=== PATIENT | female | born 1995 | race Caucasian/White ===

== ENCOUNTER 2023-07-05 08:22 | Outpatient (CLI) | payer OTHER, SELFPAY ==
--- NOTE | 2023-07-05 08:15 | CRLHL7_ITS ---
For Patients: As a result of the Century Cures Act, medical imaging exams and procedure reports are released immediately into your electronic medical record. You may view this report before your referring provider. If you have questions, please contact your health care provider. INDICATION: First trimester scan, establish dates. COMPARISON: None. TECHNIQUE: Real-time pascual-scale imaging of the pelvis was performed. FINDINGS: Sonographic imaging demonstrates a single living intrauterine gestation. The embryo demonstrates a regular cardiac rate measuring 165 beats per minute. The embryo`s crown-rump length measurement of 1.5 cm corresponds to a gestational age of 7 weeks 6 days with a sonographic due date of 02/15/2024. There is a normal-appearing yolk sac. There are no gross abnormalities noted within the embryo at this early state of development. The gestational sac has a normal appearance. There is no evidence of a perigestational hemorrhage. The amount of fluid within the sac appears appropriate for gestational age. The cervix is closed. The myometrium appears normal. The ovaries are of normal size. Corpus luteal cyst left ovary. There are no suspicious fluid collections noted in the cul-de-sac. IMPRESSION: Normal first trimester OB ultrasound exam. Gestational age calculated at 7 weeks 6 days with a sonographic due date of 02/15/2024. Dictated by Van Clark MD @ 07/10/2023 5:10:11 PM (Electronically Signed)
== END 2023-07-05 08:23 | disposition home or self-care (01) ==
PROVIDERS: Visit Provider Physician Assistant
DX: Z34.91 Encounter for supervision of normal pregnancy, unspecified, first trimester (principal); Z3A.01 Less than 8 weeks gestation of pregnancy
CPT/HCPCS: 76817

== ENCOUNTER 2023-07-05 09:38 | Outpatient (CLI) | payer OTHER, SELFPAY ==
[2023-07-05 12:47] LABS: Chlamydia DNA Amplified* NOT DETECTED (No Detected); GC DNA Amplified* NOT DETECTED (No Detected)
== END 2023-07-05 09:39 | disposition home or self-care (01) ==
PROVIDERS: Visit Provider Physician Assistant
DX: Z34.91 Encounter for supervision of normal pregnancy, unspecified, first trimester (principal)
CPT/HCPCS: 86592; 86703; 86704; 86706; 86762; 86787; 86803; 86850; 86900; 86901; 87086; 87340; 87491; 87591

== ENCOUNTER 2023-10-02 15:01 | Outpatient (CLI) | payer OTHER, SELFPAY ==
--- NOTE | 2023-10-02 15:00 | US_ITS ---
Patient: HENRI BALBUENA Facility:?[facility] Patient ID:?[id number] Site Patient ID:?[id number]. Site :?[id number] Study:?US-OB Pelvis OB > 14wks-10/02/2023 4:30:12 PM Ordering Physician:Ofe Murcia Final Report: INDICATION: Evaluate anatomy. COMPARISON: 07/05/2023 TECHNIQUE: Real time pascual scale imaging of the fetus was performed as well as color Doppler analysis of the umbilical vessels. FINDINGS: Sonographic imaging demonstrates a single living intrauterine gestation. Fetus demonstrates a regular cardiac rate of 150 beats per minute. Fetus has a vertex position. The placenta lies anteriorly without evidence of placenta previa. Edge of the placenta located 4.1 cm from the internal cervical os. Amniotic fluid volume appears normal. Single deepest vertical pocket: 3.7 cm. The cervix is closed and measures 4.3 cm in length. The composite ultrasound gestational age is calculated at 20 weeks 6 days with an estimated sonographic due date of 02/13/2024. The estimated weight is 386 grams which lies at the 65th %. The following biometric measurements were obtained: Biparietal diameter: 4.8 cm/20 weeks 4 days 52nd% Head circumference: 18.0 cm/20 weeks 3 days 34th% Abdominal circumference: 15.8 cm/21 weeks 0 days 57th% Femur length: 3.5 cm/21 weeks 0 days 57th% The HC/AC ratio measures: 1.14 range (1.06-1.25) On anatomic survey, there is a normal appearance of the cerebral ventricles, cavum septi pellucidi, cisterna magna and cerebellum. The nose, lips, and facial profile appear normal. The cervical, thoracic and lumbar spine are well visualized and appear normal. There is a normal four-chamber heart view and the left and right ventricular outflow tracts appear normal. The diaphragm and stomach appear normal. The kidneys and bladder also appear normal. Mild bilateral pelviectasis measuring 2.4 millimeters and 1.7 millimeters, considered normal. There is a normal three-vessel cord and cord insertion site. The four extremities appear normal. IMPRESSION: Normal OB ultrasound exam with concordance of clinical and sonographic dating. No intrinsic abnormalities noted on anatomic survey. Dictated by Van Clark MD @ 10/03/2023 9:14:49 AM Signed by:?Van Clark MD @10/03/2023 9:14:49 AM (Electronic Signature)
== END 2023-10-02 15:02 | disposition home or self-care (01) ==
LOC: US 15:01
PROVIDERS: Visit Provider Advanced Practice Midwife
DX: Z34.92 Encounter for supervision of normal pregnancy, unspecified, second trimester (principal); Z3A.20 20 weeks gestation of pregnancy
CPT/HCPCS: 76805

== ENCOUNTER 2023-11-01 15:42 | Outpatient (CLI) | payer OTHER, SELFPAY | END 2023-11-01 15:43 | disposition home or self-care (01) | LOC: NFLDREF 11-02 10:04 | PROVIDERS: Visit Provider Registered Nurse | DX: R32 Unspecified urinary incontinence (principal); N89.8 Other specified noninflammatory disorders of vagina | CPT/HCPCS: 87086 ==

== ENCOUNTER 2023-11-28 12:15 | Outpatient (CLI) | payer OTHER, SELFPAY | END 2023-11-28 12:16 | disposition home or self-care (01) | PROVIDERS: Visit Provider Advanced Practice Midwife | DX: Z34.03 Encounter for supervision of normal first pregnancy, third trimester (principal) | CPT/HCPCS: 86592; 86850; J2791 ==

== ENCOUNTER 2023-11-28 15:52 | Outpatient (CLI) | payer OTHER, SELFPAY ==
[2023-11-28 16:03] VITALS: BP 116/77; PULSE 87; RESP 16; TEMP 36.6
--- NOTE | 2023-11-28 19:35 | PC.OBNST ---
NST Note NST Note Start: 11/28/23 15:57 Freq: ONCE Status: Active Protocol: Document 11/28/23 16:48 JRNoelle (Rec: 11/28/23 16:49 JRNoelle [id number]) NST Note 1 Para (# of births) 0 EDC 02/15/24 Gestational Age In Weeks & Days 28 Weeks & 5 Days Patient Presented with Complaint(s) of Decreased movement Reactive Yes Appropriate for Gestational Age Yes RN Brittany Chanel RN Date 11/28/23 Reactive Yes Appropriate for Gestational Age Yes MALIKA Hfofman RN Date 11/28/23 OB NST charge Yes Complete NST Note via Write Note Yes The provider's electronic signature indicates the NST is reactive/appropriate for gestational age. *Note to provider: If an addendum is required, open the patient's chart and click on the note under the Nurse/Allied Health tab.
--- NOTE | 2024-01-03 12:44 | PC.OBNST ---
NST Note NST Note Start: 11/28/23 15:57 Freq: ONCE Status: Discharge Protocol: Document 11/28/23 16:48 FARZANA (Rec: 11/28/23 16:49 FARZANA [id number]) NST Note 1 Para (# of births) 0 EDC 02/15/24 Gestational Age In Weeks & Days 28 Weeks & 5 Days Patient Presented with Complaint(s) of Decreased movement Reactive Yes Appropriate for Gestational Age Yes RN Brittany Chanel RN Date 11/28/23 Reactive Yes Appropriate for Gestational Age Yes MALIKA Hoffman RN Date 11/28/23 OB NST charge Yes Complete NST Note via Write Note Yes The provider's electronic signature indicates the NST is reactive/appropriate for gestational age. *Note to provider: If an addendum is required, open the patient's chart and click on the note under the Nurse/Allied Health tab.
--- NOTE | 2024-01-03 13:26 | PC.OBNST ---
NST Note NST Note Start: 11/28/23 15:57 Freq: ONCE Status: Discharge Protocol: Document 11/28/23 16:48 FARZANA (Rec: 11/28/23 16:49 FARZANA [id number]) NST Note 1 Para (# of births) 0 EDC 02/15/24 Gestational Age In Weeks & Days 28 Weeks & 5 Days Patient Presented with Complaint(s) of Decreased movement Reactive Yes Appropriate for Gestational Age Yes RN Brittany Chanel RN Date 11/28/23 Reactive Yes Appropriate for Gestational Age Yes MALIKA Hoffman RN Date 11/28/23 OB NST charge Yes Complete NST Note via Write Note Yes The provider's electronic signature indicates the NST is reactive/appropriate for gestational age. *Note to provider: If an addendum is required, open the patient's chart and click on the note under the Nurse/Allied Health tab.
== END 2023-11-28 17:15 | disposition home or self-care (01) ==
LOC: OB OUT 15:53 → OB 15:54
PROVIDERS: Visit Provider Advanced Practice Midwife
DX: O36.8130 Decreased fetal movements, third trimester, not applicable or unspecified (principal); Z3A.28 28 weeks gestation of pregnancy
CPT/HCPCS: 59025; 86850; G0463; J2791

== ENCOUNTER 2023-12-12 08:25 | Outpatient (CLI) | payer OTHER, SELFPAY | END 2023-12-12 08:26 | disposition home or self-care (01) | LOC: NFLDREF 12-13 10:40 | PROVIDERS: Visit Provider Advanced Practice Midwife | DX: O99.810 Abnormal glucose complicating pregnancy (principal) | CPT/HCPCS: 82951; 82952 ==

== ENCOUNTER 2024-01-09 10:13 | Outpatient (CLI) | payer OTHER, SELFPAY | END 2024-01-09 10:14 | disposition home or self-care (01) | LOC: LKVREF 10:13 | PROVIDERS: Visit Provider Advanced Practice Midwife | DX: Z34.93 Encounter for supervision of normal pregnancy, unspecified, third trimester (principal); Z3A.34 34 weeks gestation of pregnancy | CPT/HCPCS: 82728 ==

== ENCOUNTER 2024-01-24 10:08 | Outpatient (RCR) | payer OTHER, SELFPAY ==
--- NOTE | 2024-01-10 11:49 | PC.NURSE ---
Diagnosis: SUZIE in
--- NOTE | 2024-01-11 12:35 | URNOTE ---
Request received for authorization for Infed ([id number]). Prior authorization is not required per Joy on behalf of [employer].
[2024-01-24 10:24] VITALS: BP 113/71; PULSE 87; RESP 16; TEMP 36.6; O2SAT 98
[2024-01-24] MEDS: IRON DEXTRAN COMPLEX 25 MG in 0.9 % SODIUM CHLORIDE 100 ml 100 ML 402 MG IVPB (10:50)
[2024-01-24 11:16] VITALS: BP 102/64; PULSE 85; RESP 14; TEMP 36.4; O2SAT 98
[2024-01-24] MEDS: IRON DEXTRAN COMPLEX 975 MG in 0.9 % SODIUM CHLORIDE 250 ml 250 ML 270 MG IVPB (12:25)
[2024-01-24 13:35] VITALS: BP 106/67; PULSE 82; RESP 16; TEMP 36.3; O2SAT 97
[2024-01-24 14:05] VITALS: BP 112/69; PULSE 79; RESP 14; TEMP 36.4; O2SAT 97
== END 2024-07-22 23:59 | disposition home or self-care (01) ==
LOC: CCIC 10:08
PROVIDERS: Visit Provider Advanced Practice Midwife
DX: O99.019 Anemia complicating pregnancy, unspecified trimester (principal); D50.9 Iron deficiency anemia, unspecified
CPT/HCPCS: 87081; 87653; 96365; 96376; J1750; J7050

== ENCOUNTER 2024-01-30 16:36 | Outpatient (CLI) | payer OTHER, SELFPAY ==
[2024-01-30] VITALS (19 sets, daily range): BP systolic 115; BP diastolic 74; PULSE 76–97; TEMP 36.6; O2SAT 97–98
[2024-01-30 18:32] LABS: Amnisure Rom* Negative
[2024-01-30] MEDS: metroNIDAZOLE 500 MG TABLET PO (19:03)
--- NOTE | 2024-01-30 20:31 | PC.OBNST ---
NST Note NST Note Start: 01/30/24 16:49 Freq: ONCE Status: Active Protocol: Document 01/30/24 20:30 ABP (Rec: 01/30/24 20:31 ABP [id number]) NST Note 1 Para (# of births) 0 EDC 02/15/24 Gestational Age In Weeks & Days 37 Weeks & 5 Days Patient Presented with Complaint(s) of Leaking fluid Reactive Yes MALIKA Hoffman RN Date 01/30/24 Reactive Yes MALIKA Negro Date 01/30/24 OB NST charge Yes Complete NST Note via Write Note Yes The provider's electronic signature indicates the NST is reactive/appropriate for gestational age. *Note to provider: If an addendum is required, open the patient's chart and click on the note under the Nurse/Allied Health tab.
== END 2024-01-30 19:05 | disposition home or self-care (01) ==
LOC: OB OUT 16:37 → OB 16:37
PROVIDERS: Advanced Practice Midwife; Visit Provider Midwife
DX: O47.1 False labor at or after 37 completed weeks of gestation (principal); Z3A.37 37 weeks gestation of pregnancy
CPT/HCPCS: 59025; 84112; G0463; A9270

== ENCOUNTER 2024-02-04 10:11 | Outpatient (CLI) | payer OTHER, SELFPAY ==
[2024-02-04 10:22] VITALS: PULSE 98; O2SAT 99
[2024-02-04 10:27] VITALS: BP 108/70; PULSE 97
[2024-02-04 10:44] VITALS: TEMP 36.6
--- NOTE | 2024-02-04 11:42 | PC.OBNST ---
NST Note NST Note Start: 02/04/24 10:18 Freq: ONCE Status: Active Protocol: Document 02/04/24 11:27 FJZ (Rec: 02/04/24 11:41 FJZ [id number]) NST Note 1 Para (# of births) 0 EDC 02/15/24 Gestational Age In Weeks & Days 38 Weeks & 3 Days Patient Presented with Complaint(s) of Decreased movement Reactive Yes Appropriate for Gestational Age Yes RN Anton Hollis RN Date 02/04/24 Reactive Yes Appropriate for Gestational Age Yes MALIKA Miller RNC Date 02/04/24 OB NST charge Yes Complete NST Note via Write Note Yes The provider's electronic signature indicates the NST is reactive/appropriate for gestational age. *Note to provider: If an addendum is required, open the patient's chart and click on the note under the Nurse/Allied Health tab.
== END 2024-02-04 11:27 | disposition home or self-care (01) ==
LOC: OB OUT 10:11 → OB 10:18
PROVIDERS: Visit Provider Advanced Practice Midwife
DX: O36.8130 Decreased fetal movements, third trimester, not applicable or unspecified (principal); Z3A.38 38 weeks gestation of pregnancy
CPT/HCPCS: 59025; G0463

== ENCOUNTER 2024-02-06 16:25 | Outpatient (CLI) | payer OTHER, SELFPAY ==
--- NOTE | 2024-02-06 17:00 | CRLHL7_ITS ---
For Patients: As a result of the Cures Act, medical imaging exams and procedure reports are released immediately into your electronic medical record. You may view this report before your referring provider. If you have questions, please contact your health care provider. INDICATION: Uterine size for dates discrepancy COMPARISON: 10/02/2023 TECHNIQUE: Real time pascual scale imaging of the fetus was performed. FINDINGS: Sonographic imaging demonstrates a single living intrauterine gestation. Fetus demonstrates a regular cardiac rate of 133 beats per minute. Fetus has a vertex position. The placenta lies anteriorly. Amniotic fluid volume appears normal and there is a single deepest vertical pocket: 3.2 cm. The estimated weight is 3642gm which lies at the 73rd %. On the prior OB ultrasound exam dated 10/02/2023 the estimated weight was at the 65th%. BPD 16th percentile. HC 40th percentile. AC 95th percentile. FL is 27th percentile. The HC/AC ratio measures 0.93 range (0.89-1.06). IMPRESSION: Sonographic gestational age 38 weeks 2 days and sonographic due date of 02/18/2024. Good correlation with dates. Normal interval growth. Estimated weight 73rd percentile. Abdominal circumference is 95th percentile. Dictated by Van Clark MD @ 02/08/2024 12:09:09 PM (Electronically Signed)
== END 2024-02-06 16:26 | disposition home or self-care (01) ==
LOC: US 16:26
PROVIDERS: Visit Provider Advanced Practice Midwife
DX: O26.843 Uterine size-date discrepancy, third trimester (principal); Z3A.38 38 weeks gestation of pregnancy
CPT/HCPCS: 76816

== ENCOUNTER 2024-02-18 10:50 | Inpatient (IN) | payer OTHER, SELFPAY ==
[2024-02-18] VITALS (80 sets, daily range): BP systolic 69–125; BP diastolic 41–85; PULSE 64–99; RESP 16; TEMP 36.5–36.9; O2SAT 96–100; BMI 27.8
[2024-02-18 09:12] LABS: Amnisure Rom* POSITIVE
--- NOTE | 2024-02-18 11:27 | W.PM.LDBA ---
Subjective History of Present Illness Time Seen by Provider: 10:45 Date Seen: 02/18/24 Narrative: Patient is being admitted to Labor and Delivery for active labor and SROM at term. She is a 28 year old at 40w3d weeks gestation. Her full history and physical was dictated by Noelle Doe CNM on 01/30/2024 Please see this for details. She would like to NOT be offered an epidural. She is aware it is available and will ask for it when desired, if desired. Sergio wants to cut cord and declare the baby's sex at . Specific Issues/Plans SURPRISE GENDER! Sergio- wants to declare gender at H&P done by Noelle Doe APRN, CNM 1. Varicella nonimmune Recommend vaccination 2. Failed 1hr GTT, 3hr passed all values passed out when 1 hour was drawn. 3. Anemia. Hgb 12.3 but ferritin 8.6 at 34 wks and symptomatic. Getting iron infusions 4, Measuring small for dates at 38.5 weeks. Growth US: normal growth 5. neg BT (O-) Received rhogam 11/28/2023 Flu: Declined COVID: Declined OB - Problem Based A/P Additional Plan (1) Pain during labor: Status: Acute (2) : Status: Acute (3) SROM (spontaneous rupture of membranes): Status: Acute Plan ASSESSMENT:?? 28 at 40w3d weeks gestation?? complicated by:?? Labor type: Spontaneous, Early labor?with SROM Category 1 FHR pattern.??? Labor complicated by: none?? GBS negative? ?? PLAN:?? 1. Routine intrapartum cares as ordered. Continue with expectant management?? 2. Monitoring per policy, intermittent?? 3. Planning unmedicated . Candidate for analgesia of choice.??? 4. Patient encouraged to reposition and ambulate to promote physiologic labor and .?? 5. Promote plan. 6. Anticipate ? OB Result Labs Blood Type: 0 (-) negative Rubella: immune RPR/VDLR: nonreactive GBS Status: negative HBsAG: negative OB Exam Physical Exam Vital signs: Temp Pulse Resp BP Pulse Ox 97.7 F 72 16 122/83 98 02/18/24 10:41 02/18/24 10:38 02/18/24 10:41 02/18/24 10:38 02/18/24 08:24 Narrative: Vitals Reviewed; Amnisure positive Constitutional:? Alert and oriented x3 HEENT:? Normocephalic, atraumatic Neck:? Supple Lungs:? Clear to auscultation bilaterally Heart:? Regular rate and rhythm, no murmur, rub or gallop Abdomen:? Soft, nontender, and gravid. Vertex by Kelvin's, confirmed with cervical exam. Extremities:? No edema or erythema Cervix: 2 cm/80%/-1 station/vertex (palpable sutures) NST: 130 bpm/moderate variability/accelerations present/decelerations absent/contractions q 2-3min
[2024-02-18 12:53] LABS: Basophils Percent Auto 0.2 % (0.0-3.0); Eosinophils Percent Auto 0.8 % (0.0-7.0); Hematocrit 39.2 % (33.0-51.0); Immature Granulocytes Pct Auto 0.8 %; Lymphocytes Percent Auto 8.2 % (20-44); Mean Corpuscular HGB Conc 33 gm/dL (32-36); Mean Corpuscular Hemoglobin 29 pg (26-34); Mean Corpuscular Volume 89 fL (80-100); Platelet Count* 188 K/uL (140-440); RDW Coefficient of Variation % 13.8 % (11.5-15.5); Red Blood Count 4.43 m/uL (4.00-5.20); White Blood Count* 12.74 K/uL (4.50-11.00)
[2024-02-18 12:57] LABS: Slide Review Reflex No
--- NOTE | 2024-02-18 13:00 | PM.OBPNL ---
Subjective Time Seen by Provider: 12:45 Date Seen: 02/18/24 Narrative: Tracey is coping well with labor. Well supported by her , Sergio and nursing. Objective Exam: Objective: Constitutional: Alert and oriented x3, no distress, coping well Vital signs stable, see nurse documentation Abdomen: gravid, contractions palpate mild to moderate with contractions and soft between Cervix: deferred NST: intermittent. see nursing documentation. No concerns. Vital Signs: Last Vital Signs Temp 97.7 F 02/18/24 10:41 Pulse 72 02/18/24 10:38 Resp 16 02/18/24 10:41 BP 122/83 02/18/24 10:38 Pulse Ox 98 02/18/24 08:24 Plan Plan: 27 at 40w3d weeks gestation?? complicated by:??none Labor type: Spontaneous, Early to Active labor, SROM clear fluid.?? Category 1 FHR pattern.??? Labor complicated by: none?? GBS negative? ?? PLAN:?? 1. Routine intrapartum cares as ordered. Continue with expectant management?? 2. Monitoring per policy, intermittent?? 3. Planning unmedicated . Candidate for analgesia of choice.??? 4. Patient encouraged to reposition and ambulate to promote physiologic labor and .?? 5. Anticipate ?
[2024-02-18] MEDS: LACTATED RINGERS 1000 ML 1,000 ML 125 ML IV ×2 (15:05→20:51)
--- NOTE | 2024-02-18 15:20 | PM.OBPNL ---
Subjective Date Seen: 02/18/24 Narrative: Tracey is a 28 you G1 at 40w3d who is in the early stages of labor, but struggling to cope with the sensations and is requesting an epidural. Though early in labor, she is ruptured, so progression towards delivery is in the best interest. She is supported well by her partner, Sergio, spouse. Objective Exam: Objective: Constitutional: Alert and oriented x3, no distress, coping well Vital signs stable, see nurse documentation Abdomen: gravid, contractions palpate mild to moderate with contractions and soft between Cervix: 3/85/-1 NST: intermittent. see nursing documentation. No concerns. Vital Signs: Last Vital Signs Temp 97.9 F 02/18/24 13:13 Pulse 80 02/18/24 14:15 Resp 16 02/18/24 10:41 BP 106/57 L 02/18/24 13:13 Pulse Ox 97 02/18/24 13:13 Plan Plan: Plan Plan: 27 at 40w3d weeks gestation?? complicated by:??none Labor type: Spontaneous, Early to Active labor, SROM clear fluid.?? Category 1 FHR pattern.??? Labor complicated by: none?? GBS negative? ?? PLAN:?? 1. Routine intrapartum cares as ordered. Continue with expectant management?? 2. Monitoring per policy, intermittent?? 3. Candidate for analgesia of choice.?Prep for epidural as desired. 4. Patient encouraged to reposition and ambulate to promote physiologic labor and .?? 5. Anticipate ?
[2024-02-18] MEDS: LACTATED RINGERS 1000 ML 1,000 ML 1200 ML IV (16:01)
[2024-02-18] MEDS: ROPIVACAINE 0.2% 100 ml 100 ML 12 MG EPIDURAL ×2 (16:17→23:39)
[2024-02-18] MEDS: LIDOCAINE 2% (PF) 5 ML VIAL EPIDURAL (16:17)
[2024-02-18] MEDS: fentaNYL 250 MCG/5 ML inj 100 MCG EPIDURAL (16:20)
[2024-02-18] MEDS: ePHEDrine sulfate 5 MG/ML inj 10 MG IVP ×2 (16:25→19:44)
[2024-02-18] MEDS: PHENYLEPHRINE 100 MCG/ML SYRINGE IVP ×4 (16:27→18:51)
--- NOTE | 2024-02-18 16:31 | PM.ANBPRC ---
PFSH PFS Surgical History History of arthroscopy of right knee ?Z98.890 - Other specified postprocedural states (ICD-10) Family History Maternal Grandmother Thyroid disease Lung cancer Father Asthma Autoimmune disease Maternal Grandfather No problems noted. 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 Marital status: . Protestant/cultural needs: no. Chemical or radiation exposure: no. Pre- tobacco use: no. Pre- alcohol use: Occasional. Current tobacco use: no. Current alcohol use: no. Recreational drug use: no. Dietary restrictions: no. Blood transfusion acceptable in an emergency: yes. PSYCHOSOCIAL HISTORY: History of depression or currently depressed: no. Current or past physical, emotional, or sexual mistreatment: no. Problems that will make it hard to make it to appointments: no. What is your current living situation?: I presently have a place to live Problems where you live: no known problems In the past 12 months, utilities in danger of being shut off: no In past 12 months, lack of transportation kept you from medical appts, meetings, work, or getting things needed for daily living: no How hard is it for you to pay for the very basics like food, housing, medical care, and heating: not very hard In the past 12 mos, have been you worried that your food would run out before you had money to buy more?: never true In the past 12 mos, the food you bought just didn't last and you didn't have money to buy more?: never true Smoking Status: Never smoker How often does anyone, including family, friends and others, physically hurt you: never How often does anyone, including family, friends and others, insult or talk down to you: never How often does anyone, including family, friends and others, threaten you with harm: never How often does anyone, including family, friends and others, scream or curse at you: never Little interest or pleasure in doing things: several days Feeling down, depressed, or hopeless: not at all Meds Home Medications and Allergies Home Medications ?Medication ?Instructions ?Recorded ?Confirmed ?Type docosahexaenoic acid 200 mg 200 mg PO DAILY 07/05/23 02/18/24 History capsule ( DHA) Allergies Allergy/AdvReac Type Severity Reaction Status Date / Time No Known Drug Allergies Allergy Verified 02/13/24 14:15 Results Labs Labs: Laboratory Results - last 24 hr 02/18/24 02/18/24 08:50 12:46 WBC 12.74 H RBC 4.43 Hgb 13.0 Hct 39.2 MCV 89 MCH 29 MCHC 33 RDW Coeff of Colin 13.8 Plt Count 188 Neut % (Auto) 84.0 H Lymph % (Auto) 8.2 L [place] % (Auto) 6.0 Eos % (Auto) 0.8 Baso % (Auto) 0.2 Neut # (Auto) 10.70 H Lymph # (Auto) 1.00 [place] # (Auto) 0.80 Eos # (Auto) 0.10 Baso # (Auto) 0.00 Abs Immat Gran (auto) 0.10 Imm/Tot Granulo (auto) 0.8 Membrane Rupture POSITIVE Blood Type O Negative Antibody Screen NEGATIVE Vital Signs Vital Signs: Last Vital Signs Temp 98 F 02/18/24 15:15 Pulse 77 02/18/24 16:30 Resp 16 02/18/24 10:41 BP 111/68 02/18/24 16:30 Pulse Ox 100 02/18/24 16:28 Weight: 80.739 kg Height: 170.18 cm Anesthesia Procedures Epidural Insertion Patient Location: OB Start Time: 16:00 Stop Time: 17:00 Start Date: 02/18/24 Stop Date: 02/18/24 Reason for Block: primary anesthetic Patient Position: sitting Performed By: Elfego Lee Preanesthetic Checklist: IV checked, risks and benefits discussed, surgical consent, monitors and equipment checked, pre-op evaluation, timeout performed and anesthesia consent Prep: chlorhexidine gluconate Monitoring: blood pressure monitoring, welder fitter arc, continuous pulse oximetry and heart rate Approach: midline Vertebral Space: lumbar (1-5) Needle Type: Tuohy needle Injection Technique: continuous catheter Needle gauge: 17 Needle Length (cm): 10 cm Needle Insertion Depth (cm): 6 Catheter Gauge: 19 Catheter Type: multi-orifice Catheter at skin depth (cm): 12 Test Dose Result: negative and lidocaine 1.5% with epinephrine 1 to 200,000 Events: other
[2024-02-18] MEDS: OXYTOCIN 30 unit/500 ML in NS 30 UNIT/500 ML BAG IVPB (17:45)
--- NOTE | 2024-02-18 17:48 | PM.OBPNL ---
Subjective Time Seen by Provider: 17:30 Date Seen: 02/18/24 Narrative: Pt is comfortable with epidural. Contractions have spaced to q 5 minutes. Objective Exam: Objective: Constitutional: Alert and oriented x3, [mild/moderate/severe] distress, coping well Vital signs stable, see nurse documentation Abdomen: gravid, contractions palpate [mild/moderate/strong] with contractions and soft between Cervix: deferred NST: 140 bpm/moderate variability/accelerations present/decelerationsabsent/contractions q 5 min, soft in between >60 sec Vital Signs: Last Vital Signs Temp 98.2 F 02/18/24 17:13 Pulse 78 02/18/24 17:47 Resp 16 02/18/24 10:41 BP 95/50 L 02/18/24 17:47 Pulse Ox 99 02/18/24 17:17 Plan Plan: ASSESSMENT:?? 27 at 40w3d weeks gestation?? complicated by:??none Labor type: Spontaneous, Early to Active labor, SROM clear fluid.?? Category 1 FHR pattern.??? Labor complicated by: none?? GBS negative? ?? PLAN:?? 1. Routine intrapartum cares as ordered. Reviewed risk of infection after ROM with no current infection signs, but progression of labor is recommended. Reviewed pitocin augmentation. Pt and spouse consent to pitocin initiation. 2. Monitoring per policy, Constinuous?? 3. Continue epidural anesthesia 4. Patient encouraged to reposition to promote physiologic labor and .?? 5. Anticipate ?
--- NOTE | 2024-02-18 21:23 | PM.OBPNL ---
Subjective Date Seen: 02/18/24 Narrative: Tracey is resting comfortably with the epidural. Objective Exam: Objective: Constitutional: resting Vital signs stable, see nurse documentation Abdomen: gravid, contractions palpate moderate with contractions and soft between per nursing Cervix: deferred NST: normal baseline/moderate variability/accelerations present/decelerations present with variables interittently and resolve with conservative measures, see nursing documentation for further details Vital Signs: Last Vital Signs Temp 98.2 F 02/18/24 20:53 Pulse 70 02/18/24 21:18 Resp 16 02/18/24 19:18 BP 98/53 L 02/18/24 21:18 Pulse Ox 99 02/18/24 17:17 Assessment Assessment: early labor Amniotic Membrane Status: SROM (clear fluid, grossly 0800 02/18/2024) Status: Category ll (with intermittent variables and moderate variability) Plan Plan: Labor A/P? 27 at 40w3d weeks gestation?? complicated by:??none Labor type: Spontaneous, Early to Active labor, SROM clear fluid. Augmented.?? Category 2 FHR pattern.??? Labor complicated by: Cat 2 tones?? GBS negative? ?? PLAN:?? 1. Routine intrapartum cares as ordered. Continue pitocin augmentation per policy with Cat 2 tone interventions as needed. 2. Monitoring per policy, Continuous?? 3. Continue epidural anesthesia 4. Patient encouraged to reposition to promote physiologic labor and .?? 5. Anticipate ? ?
[2024-02-19] VITALS (75 sets, daily range): BP systolic 89–127; BP diastolic 50–85; PULSE 71–129; RESP 16; TEMP 36.4–37.7; O2SAT 98
[2024-02-19] MEDS: LACTATED RINGERS 1000 ML 1,000 ML 125 ML IV ×2 (01:39→09:44)
[2024-02-19] MEDS: PHENYLEPHRINE 100 MCG/ML SYRINGE IVP (03:10)
[2024-02-19] MEDS: ROPIVACAINE 0.2% 100 ml 100 ML 12 MG EPIDURAL (07:33)
--- NOTE | 2024-02-19 09:43 | PM.OBPNL ---
Subjective Date Seen: 02/19/24 Narrative: ?Tracey is coping well with labor pain/contractions. ?Sergio is with her for support. ?She would like to continue with her epidural for comfort and pain management.?She is not having pain but feels her legs have more feeling than before. Resting comfortably and changing positions with RN assistance. Objective Exam: VSS, afebrile General Appearance:? Calm, cooperative. ?No acute distress. ? Psychiatric Exam: Alert and oriented, appropriate affect Abdomen: Gravid Ctx: ?Q 2-5 min apart. ? ? ?Strong FHTs: ?Baseline:145. ? ? Variability: moderate. ?Accels: +. ? ?Decels: ?variables. SVE: right rim/+1 Membranes: ?SROM ? Vital Signs: Last Vital Signs Temp 97.7 F 02/19/24 08:58 Pulse 74 02/19/24 09:34 Resp 16 02/19/24 06:34 BP 104/62 02/19/24 09:34 Pulse Ox 99 02/18/24 17:17 Assessment Amniotic Membrane Status: SROM Plan Plan: Assessment:?? at 40.4 weeks gestation?? GBS negative Patient is coping well with challenges of labor.?? Labor type: Augmented, Active labor? Category 1 FHR pattern.? No or labor complications at this time. Plan:?? Continue IV Pitocin augmentation per protocol Continue with routine intrapartum cares as ordered.?? Patient encouraged to move and change positions to promote physiologic labor and .?? Epidural per anesthesia orders Anticipate progress to NVD. ?
--- NOTE | 2024-02-19 12:37 | PM.OBPNL ---
Subjective Date Seen: 02/19/24 Narrative: ?Tracey is coping well with labor pain/contractions. ?Sergio is with her for support. ?She would like to continue with her epidural for comfort and pain management.?She is currently complete and pushing with good effort. Pain is managed well with epidural. Objective Exam: VSS, afebrile General Appearance:? Calm, cooperative. ?No acute distress. ? Psychiatric Exam: Alert and oriented, appropriate affect Abdomen: Gravid Ctx: ?Q 2-5 min apart. ? ? ?Strong FHTs: ?Baseline: 145. ? ? Variability: moderate. ?Accels: +. ? ?Decels: ?occasional variables. SVE: 10/100/+2 Membranes: ?SROM Vital Signs: Last Vital Signs Temp 97.6 F 02/19/24 12:03 Pulse 74 02/19/24 12:32 Resp 16 02/19/24 06:34 BP 109/64 02/19/24 12:32 Pulse Ox 99 02/18/24 17:17 Contractions Pitocin Rate (mU/min): 6 Assessment Amniotic Membrane Status: SROM Plan Plan: Assessment:??G 1 P0 at 40.4 wks gestation?? GBS neg Patient is coping well with challenges of labor.?? Labor type: Augmented, Active labor? Category 1 FHR pattern.? complicated by: none Labor complicated by: none? Plan:?? Continue with routine intrapartum cares as ordered.?? Patient encouraged to move and change positions to promote physiologic labor and .?? Epidural infusing. Position changes PRN with pushing. Anticipate progress to NVD. ?
--- NOTE | 2024-02-19 15:41 | W.PM.OBVAGDE ---
OB Procedure Vag Delivery Mother Details Mother Details: The patient is a 28 year-old, 1, Para 0, admitted on 02/18/24 at 40.3 weeks gestation. : 1 Para: 1 Weeks Gestation: 40.4 Admission Date: 02/18/24 Additional Details Amniotic Membrane Status: SROM Amniotic Membrane Rupture Date: 02/18/24 Amniotic Membrane Rupture Time: 08:00 Amniotic Membrane Fluid Description: Clear Analgesia/Anesthesia Type: Epidural Waterbirth: No Pitcoin: Yes Intrapartal Events: Labor Augmentation and ROM >18 Hours Induction Method: per pitocin protocol Labor Onset: 00:00 Complete: 11:38 Pushin:43 Heart: heart tones during second stage were Category 2, with moderate variability, tachycardia 160-170 intermittently improved with position changes then sustained just before delivery. Occasional variables with contractions. Delivery Details Delivery Date: 02/19/24 Delivery Time: 15:05 Route of delivery: Gender: Female Infant Viability: Alive; Heart Rate Present Position at Delivery: OA Delivery Details: 28?y.o?at 40.4 weeks.? Tracey was admitted for SROM at 02/18/24 at 0800 with clear fluid. She received an epidural for pain which was working well through out her labor. After this was placed she was started on IV Pitocin per protocol. She progressed to complete and pushed effectively. Pitocin titrated per protocol. ? She became complete at 1138. ??? During the second stage FHR became tachycardic and Tracey had a temp max of 99.9. Pediatric providers were present at delivery infant was handed off to them at approximately 1 minute. ? Spontaneous vaginal delivery at 1505 of?a viable? female infant.??Delivered in vertex OA position.??Shoulders delivered easily.? Spontaneous cry noted.?? placed on maternal abdomen.??Cord?was clamped and cut after a approximately 1 minute for heart rate concerns.?Infant stimulated and good cry. Evaluated [facility] at [facility].? Shoulder dystocia: no? Nuchal cord: yes times one? Meconium stained?fluid: no, terminal meconium ? Water : no? ? ? 8 at 1 minute and 9 at 5 minutes.? Weight is pending. ? Placenta delivered spontaneously and?complete?at 1512 with a?3 vessel?cord.?? Bleeding controlled with fundal massage and?pitocin?for AMTSL.? ? Mother and infant were stable after delivery.? ? Lacerations:? shallow 1st degree, not bleeding, not repaired? ? Bleeding?post delivery?was: minimal . ?The fundus was firm to palpation.? Blood loss: 25?mL.? Blood loss measurement type: QBL? ? ? Sponge,?lap?and needles counts are correct.? Mother and were stable after delivery.? 1 Minute Interval Total Score: 8 5 Minute Interval Total Score: 9 Additional Details Shoulder Dystocia: No Placenta Delivery Time: 15:12 Placental Delivery Description: Spontaneous Procedure Done: Global Blood Loss: 25 Laceration: Perineal - 1st Degree Blood Loss Measurement Type: QBL Bakri Used: No Sponge/Need Count Correct: Yes Cord Vessel Description: 3 Vessels, Nuchal Cord, Loose and Delivered through Event Summary Status: Mother and infant were stable after delivery. Disposition: floor
[2024-02-19] MEDS: IBUPROFEN 600 MG TABLET PO (18:29)
[2024-02-19 22:59] LABS: Rapid Plasma Reagin (RPR) Non Reactive (Non Reactive)
[2024-02-20 00:38] VITALS: BP 109/70; PULSE 70; RESP 16; TEMP 36.6; O2SAT 98
[2024-02-20 03:14] VITALS: BP 116/78; PULSE 71; RESP 16; TEMP 36.5
[2024-02-20 07:32] VITALS: BP 114/75; PULSE 70; RESP 17; TEMP 36.4; O2SAT 98
[2024-02-20] MEDS: IBUPROFEN 600 MG TABLET PO ×2 (10:02→20:56)
--- NOTE | 2024-02-20 10:55 | PM.ANPOST ---
Post Anesthesia Note Post Anesthesia Note Patient seen: Inpatient Respiratory Status: adequate Cardiovascular Status: adequate Mental Status: baseline Pain: adequate Temp: baseline Anesthetic awareness: no Complications: none Follow care: none
--- NOTE | 2024-02-20 13:32 | PM.OBPNVD1 ---
OB - PN:Subj Subjective Date Seen: 02/20/24 Patient comments OB post-: no complaints, pain well controlled, tolerating diet and flatus present [place] status: and doing well [place] feeding status: exclusively Narrative: Tracey feels well.? Her pain is well controlled with current medications.? She has no new complaints.? Urinary output is adequate and she is voiding without difficulty.? Has a good appetite, is tolerating a general diet, is passing flatus, and has not had a bowel movement.? Has small amount of rubra lochia.? She is ambulating well.?She is and feels it is going well. She is working with . VSS and no signs of fever present. OB - PN: Obj Exam Physical Exam: Vital signs: Temp Pulse Resp BP Pulse Ox O2 Del Method 97.5 F L 70 17 114/75 98 Room Air 02/20/24 07:32 02/20/24 07:32 02/20/24 07:32 02/20/24 07:32 02/20/24 07:32 02/20/24 07:32 Narrative: GENERAL APPEARANCE:? normal affect, alert, no distress? MOOD:? appropriate? CHEST:? clear to auscultation and percussion? HEART:? regular rate and rhythm? ABDOMEN:? soft, non-tender the uterine fundus is U/2 and is appropriate for the stage of recovery. PERINEUM:? mild edema of the perineum, there is a 1st degree laceration that is healing well.? EXTREMITIES:? normal and no edema? OB - PN: Obj Data Labs Labs: Laboratory Results - last 24 hr 02/18/24 02/20/24 12:46 08:52 RPR Screen Non Reactive Screen Negative OB - PN: A/P Delivery Assessment and Plan (1) Lactating mother: Status: Acute (2) care following vaginal delivery: Status: Acute Plan day: 1 Plan: routine care Comments: Anticipate discharge home tomorrow.
[2024-02-20 21:36] VITALS: BP 129/88; PULSE 83; RESP 18; TEMP 36.3; O2SAT 97
[2024-02-21 04:05] VITALS: BP 114/72; PULSE 72; RESP 14; TEMP 36.7; O2SAT 98
--- NOTE | 2024-02-21 07:37 | PM.OBDSVD1 ---
DS: Providers Provider Date Seen: 02/21/24 Date of admission: 02/18/24 10:50 Primary care physician: Not a Local Provider Admitting Clinician: Ramila Joe CNM Attending Physician on discharge: Ramila Joe CNM Date of Discharge: 02/21/24 Exam Narrative: Exam Narrative: GENERAL APPEARANCE:? normal affect, alert, no distress MOOD:? appropriate CHEST:? clear to auscultation HEART:? regular rate and rhythm ABDOMEN:? soft, non-tender the uterine fundus is At Umbilicus, Midline and is appropriate for the stage of recovery. EXTREMITIES:? normal and minimal edema Const: Vital Signs, click to edit/add: Vital Signs - 24 hr 02/20/24 21:36 02/21/24 04:05 Temperature 97.3 F L 98.1 F Pulse Rate [Blood Pressure Cuff] 83 72 Respiratory Rate 18 14 Blood Pressure [Ri ght Arm] 129/88 114/72 Pulse Oximetry 97 98 Oxygen Delivery Me thod Room Air Room Air OB - DS: Summary Hospital Course Hospital Course: Tracey is a 28 y.o. who was admitted to [facility] for SROM and early labor. ?She had an uncomplicated NVD. Baby did have an onset of elevated temp shortly after and was given antibiotics inpatient.?The patient feels well. ?The pain is well controlled with current medications. ?She has no new complaints. ?She is breast feeding and reports things are going well.? the patient has done well.? Vitals have been stable.? She has remained afebrile.? Has a good appetite, is tolerating a general diet. ?She is voiding without difficulty.? She is passing gas and has had a bowel movement.? She is ambulating and denies any dizziness.? Has Small amount of rubra lochia. ?She is planning condoms for prevention. Discharge home with baby.? Follow up in 2 weeks and 6 weeks.? , may see if needed? Hgb 13.0. ? ? ? Peripartum Data delivery method: Vaginal Laceration description: Perineal - 1st Degree (not repaired) Episiotomy description: None complications: none [place] Infant Gender: Female Discharge Plan: Home Time Spent with Patient Time attestation: Total time spent providing and/or coordinating discharge services: Time spent: Less than 30 minutes Discharge Plan Discharge Disposition: Home, Self-Care Date of Admission: 02/18/24 10:50 Attending Provider on Discharge: Ramila Joe Primary Care Provider: Provider,Not a Local Condition: Stable Anticipated Discharge Date/Time: 02/21/24 16:17 Discharge Medications: Continued DHA 200 mg capsule 200 mg PO DAILY Discharge Orders: Discharge Order (Routine); Ordered 02/21/24 Ordered By: Ramila Joe Patient Education: OB [place] Care, OB Vaginal/Breast Feeding Additional Instructions: For pain control of perineum, breast and pelvic pain, take 600 mg Ibuprofen every 6 hours as needed by mouth or 1000 mg acetaminophen (Tylenol) every 6 hours by mouth as needed. You can alternate these so you are taking something every 3 hours as needed. A heating pad can also be used for your abdomen or breasts. Activity Level: Activity as Tolerated Discharge Diet: Regular Follow Up App[facility]ments[facility]
[2024-02-21 10:24] VITALS: BP 113/74; PULSE 72; RESP 16; TEMP 36.5; O2SAT 97
== END 2024-02-21 16:54 | disposition home or self-care (01) | DRG 805 ==
LOC: OB OUT 10:51 → OB 10:51
PROVIDERS: Admitting Provider Midwife; Visit Provider Midwife
DX: O42.02 Full-term premature rupture of membranes, onset of labor within 24 hours of rupture (principal); O41.1230 Chorioamnionitis, third trimester, not applicable or unspecified; Z37.0 Single live birth; O76 Abnormality in fetal heart rate and rhythm complicating labor and delivery; O70.0 First degree perineal laceration during delivery; O99.02 Anemia complicating childbirth; D50.9 Iron deficiency anemia, unspecified; O26.893 Other specified pregnancy related conditions, third trimester; Z67.41 Type O blood, Rh negative; Z3A.40 40 weeks gestation of pregnancy
CPT/HCPCS: 01967; 36415; 84112; 85025; 85461; 86592; 86850; 86900; 86901; 88307; A9270; J2371; J2791; J2795; J3010; J7120

== ENCOUNTER 2024-04-01 14:39 | Outpatient (CLI) | payer OTHER, SELFPAY ==
[2024-04-04 09:39] LABS: HPV Source Cervix; HPV, High Risk by TMA Not Detected
== END 2024-04-01 14:40 | disposition home or self-care (01) ==
PROVIDERS: Visit Provider Advanced Practice Midwife
DX: Z39.2 Encounter for routine postpartum follow-up (principal)
CPT/HCPCS: 87624; 87625; 88141; 88142